=== PATIENT | female | born 1995 | race Caucasian/White ===

== ENCOUNTER → 2017-02-04 | Outpatient (CLI) | payer BC ==
[~2017-02-04] MED LIST: NS 100 ML IV 100 ML IV ONE
--- NOTE | 2017-02-04 18:07 | CT ---
CT abdomen and pelvis with contrast Indication: right lower quadrant pain with nausea Comparison: None available Technique: Multiple axial images of the abdomen and pelvis were obtained from the lung bases to the pubic symph ysis after the administration of IV contrast. Coronal and sagittal reformatted images were also pro vided. Radiation dose reduction techniques were performed utilizing adjustment for MA/kVP based on patient body size. Findings: The the lung bases are clear. The liver, gallbladder, bile ducts, spleen, pancreas and adrenal gland s are normal. The right kidney contains a punctate nonobstructing stone within the upper pole on cor onal image 34. Punctate nonobstructing stone within the upper pole left kidney on image 34 is also n oted. No hydronephrosis within either kidney. Upper GI tract is without evidence of mass or obstruct ion. Urinary bladder is normal. No pelvic or adnexal mass mass. Suspected small physiologic ovarian follicular cyst. The rectum and colon are unremarkable. The appendix is normal. No periappendiceal s tranding identified. Terminal ileum also within normal limits. No pelvic free fluid or adenopathy. A bdominal aorta is normal in caliber. Review of bone windows demonstrates no acute osseous abnormalit y. Impression: 1.No acute inflammatory process identified within the abdomen or pelvis. 2. Punctate approximate 1-2 mm stones within bilateral upper poles without evidence of hydronephrosi s. Reported By:
== END ==
LOC: RAD 16:03
PROVIDERS: ATTEND Internal Medicine
DX: R10.31 Right lower quadrant pain (principal); R11.2 Nausea with vomiting, unspecified; R63.0 Anorexia
CPT/HCPCS: 74177; A4222